=== PATIENT | female | born 1975 | race Caucasian/White ===

== ENCOUNTER → 2018-06-07 10:05 | Outpatient (CLI) | payer OTHER, SELFPAY ==
--- NOTE | 2018-06-07 10:15 | DI.RAD.S_ITS ---
PROCEDURE: XR LUMBAR SPINE MIN 4V INDICATIONS: Eval TECHNIQUE: 5 views of the lumbar spine were acquired. COMPARISON: None. FINDINGS: Bones: 5 nonrib-bearing vertebrae are present. Trace retrolisthesis of L3 on 4, L4 on 5, and trace anterolisthesis of L5 on S1. No vertebral body compression fractures. Normal disc spacing. No suspicious bony lesions. Soft tissues: Overlying bowel gas pattern is normal. IUD in place. Calcified uterine fibroid visible. Surgical clips in the gallbladder fossa.. Oblique images: No pars defects. IMPRESSION: 1. Trace listhesis in the lower lumbar spine. 2. No pars defects evident on radiographs. Dictated by: Kathy Hansen M.D. on 06/07/2018 at 12:18 Approved by: Kathy Hansen M.D. on 06/07/2018 at 12:21
== END ==
PROVIDERS: PCP Nurse Practitioner Family; Visit Provider Physical Medicine & Rehabilitation
DX: M47.817 Spondylosis without myelopathy or radiculopathy, lumbosacral region (principal); G57.01 Lesion of sciatic nerve, right lower limb
CPT/HCPCS: 72110

== ENCOUNTER → 2018-06-21 17:08 | Outpatient (CLI) | payer OTHER, SELFPAY ==
--- NOTE | 2018-06-21 17:13 | DI.MRI.S_ITS ---
PROCEDURE: MR LUMBAR SPINE WO CON INDICATIONS: Eval TECHNIQUE: Noncontrast sagittal T1 spin echo and T2 fast echo, sagittal STIR, axial T1 and T2 fast spin echo through the lumbar spine. In cases with scoliosis, additional coronal T2 fast spin echo may be performed. COMPARISON: None. FINDINGS: Image quality: Excellent. Alignment and Curvature: There is normal bony alignment. Bone Marrow: Marrow is of normal overall signal. No acute vertebral body compression fractures. Spinal Cord: Conus medullaris terminates at the T12-L1 level. Visualized cord demonstrates normal signal and size. Paraspinous Soft Tissues: No paravertebral masses. L1-L2: Normal appearance. L2-L3: Normal appearance. L3-L4: Decreased intervertebral disc space and disc desiccation is seen. Broad-based disc bulge and bilateral facet arthrosis is seen with mild central canal stenosis and mild left-sided neuroforaminal narrowing. L4-L5: There is decreased intervertebral disc space and disc desiccation. Broad-based disc bulge and bilateral facet arthrosis is seen causing mild central canal stenosis and left-sided neuroforaminal narrowing. Bulging disc is seen contacting the left exiting L4 nerve root L5-S1: Disc desiccation signal is seen. Diffuse disc bulge and bilateral facet arthrosis is noted with mild to moderate central canal stenosis and bilateral neuroforaminal narrowing. IMPRESSION: 1. Degenerative distal and bilateral facet arthrosis at L3-4 through L5-S1 levels causing mild to moderate central canal stenosis. Mild bilateral neuroforamina narrowing is seen at L5-S1 level. Mild to moderate left-sided neuroforaminal narrowing is noted at L4-5 level with mild compression of exiting left L4 nerve root. 2. No marrow edema. No compression fracture or spondylolisthesis. Dictated by: Mirza Wallace M.D. on 06/22/2018 at 10:01 Approved by: Mirza Wallace M.D. on 06/22/2018 at 10:04
== END ==
PROVIDERS: PCP Nurse Practitioner Family; Visit Provider Physical Medicine & Rehabilitation
DX: M47.817 Spondylosis without myelopathy or radiculopathy, lumbosacral region (principal); M47.816 Spondylosis without myelopathy or radiculopathy, lumbar region; M48.061 Spinal stenosis, lumbar region without neurogenic claudication; M48.07 Spinal stenosis, lumbosacral region; G57.01 Lesion of sciatic nerve, right lower limb
CPT/HCPCS: 72148

== ENCOUNTER 2018-07-24 10:13 | Outpatient (CLI) | payer OTHER, SELFPAY ==
--- NOTE | 2018-07-24 10:14 | DI.RAD.S_ITS ---
PROCEDURE: PAIN SI JOINT INJECTION INDICATIONS: SACROCOCCYGEAL DISORDER FINDINGS: Fluoroscopic spot filming was performed to verify placement of spinal needles at the right SI joint level(s), as labeled on the films. Appropriate location(s) of the needle tip(s) was confirmed by injection of iodinated contrast. IMPRESSION: Fluoroscopy for pain management. Dictated by: Aubrey Driscoll M.D. on 07/24/2018 at 13:31 Approved by: Aubrey Driscoll M.D. on 07/24/2018 at 13:31
--- NOTE | 2018-07-24 10:14 | DI.RAD.S_ITS ---
PROCEDURE: PAIN L/SI FACET INJ/BLK 1STL INDICATIONS: FACET ARTHROPATHY FINDINGS: Fluoroscopic spot filming was performed to verify placement of spinal needles at the right L5-S1 facet joint as labeled on the films. Appropriate location(s) of the needle tip(s) was confirmed by injection of iodinated contrast. IMPRESSION: Fluoroscopy for pain management. Dictated by: Aubrey Driscoll M.D. on 07/24/2018 at 13:31 Approved by: Aubrey Driscoll M.D. on 07/24/2018 at 13:32
[2018-07-24 10:23] VITALS: BP 135/97; PULSE 75; RESP 16; TEMP 35.8; O2SAT 99
--- NOTE | 2018-07-24 10:46 | P.PCN_ITS ---
Procedures Date/Time Date of procedure: 07/24/18 Time of procedure: 10:45 General Procedure description: PREOP Dx: Sacroiliac joint pain/DJD POST OP DX: Sacroiliac Joint Pain/DJD Procedures: Fluoroscopic guided contrast controlled right sacroiliac joint injection Physician: Edy Liu D.O. Indications: Daphne is referred by Dr. Rangel for treatment of right sacroiliac joint DJD Description of procedure Fluoroscopic guided, contrast controlled right sacroiliac joint injection Following denial of allergies and review of potential side effects and complications, including, but not necessarily limited to, infection, allergic reaction, local tissue breakdown, temporary as well as permanent nerve injury, paralysis, stroke and possible , the patient indicated that they understood and agreed to proceed. An informed consent was signed by the patient, witnessed by a nurse, and placed in the patient's chart. Additionally, other treatment options including modalities, medications, and physical therapy were reviewed with the patient. After review of previous anaesthesic history and IV conscious sedation the patient was deemed safe to proceed with todays procedure with IV conscious sedation as ASA class II designation. Safety time-out was performed to confirm patient ID, procedure to be performed and site of procedure. IV sedation was accomplished with a combination of 3mg Versed and 50mcg of Fentanyl was adm inistered by the RN after DO order, titrated to patient comfort during the course of the procedure while the patient remained responsive to all verbal commands In the prone position following sterile prep and drape of the pelvic region, the hyper lucency on in the inferior aspect of the sacroiliac joint was identified fluoroscopically the skin was anesthetized be a 25 gauge 1 eventual with approx imately 2 cc of 1% lidocaine solution. At this point, a 22 gauge 3 in spinal needle was atraumatically introduced and advanced under fluoroscopic guidance into the inferior aspect of the right sacroiliac joint. Following negative aspiration, approximately 0.3 cc of Isovue-300 was injected confirming intra- articular placement without vascular uptake. Radiographic data, including multiple fluoroscopic views of the pelvis, reveals a spinal needle in the sacroiliac joint hyper lucent zone. Subsequent view show flow contrast tear superiorly and inferiorly within the joint capsule without vascular intrathecal uptake. At this point a total of 1cc or 0.5% Marcaine was combined with 1cc of 6mg of betamethasone was injected without incident. The procedure tolerated the procedure well without signs or symptoms of complications prior to transfer to the recovery area continued monitoring without incident. The patient was then transferred to the recovery area with a bur observed for an appropriate time after the injection. The patient reverted a vas score of 7 prior to the procedure and postprocedure vas of 1. Total fluoroscopy time: 22.7 sec Total conscious sedation time: 24 min Postop instructions The patient was provided with a pain like to continue to record the patient's response to the target specific procedure prior to the patient's follow-up visit with the referring physician. Additionally, specific post injection care instructions and a contact number to our office were provided if concerns arise regarding the possible complications associated with procedure are suspected. Edy Liu D.O.
--- NOTE | 2018-07-24 10:48 | P.PCN_ITS ---
Procedures Date/Time Date of procedure: 07/24/18 Time of procedure: 10:46 General Procedure description: PREOP DIAGNOSIS 1. FACET ARTHROPATHY, 2. AXIAL LBP, 3. MULTILEVEL DDD, POST OP DIAGNOSIS 1. FACET ARTHROPATHY, 2. AXIAL LBP, 3. MULTILEVEL DDD, PROCEDURES 1. FLUORSCOPICALLY GUIDED CONTRAST CONTROLLED FACET JOINT INJECTIONS RIGHT L5/S1 SURGEON: Edy Liu, DO INDICATIONS Daphne is referred by Juan Carlos for treatment of Axial LBP FINDINGS Multilevel Facet Arthropathy with Clinically significant axial LBP DESCRIPTION OF PROCEDURE Fluoroscopically guided, contrast-controlled right L5/S1 facet joint injections. Following denial of allergy and review of potential side effects and complications, including, but not necessarily limited to, infection, allergic reaction, local tissue breakdown, stroke, temporary or permanent nerve injury, paralysis, and possible , the patient indicated that the patient understood and agreed to proceed. An informed consent document was signed by the patient, witnessed by a nurse, and placed in the patient's chart. Additionally, other treatment options including medications, modalities, and physical therapy were reviewed with the patient. After review of previous anaesthesic history and IV conscious sedation the patient was deemed safe to proceed with todays procedure with IV conscious sedation as ASA class II designation. Safety time-out was performed to confirm patient ID, procedure to be performed and site of procedure. IV sedation was accomplished with a combination of 3mg of Versed and 50mcg of Fentanyl was administered by the RN after DO order, titrated to patient comfort during the course of the procedure while the patient remained responsive to all verbal commands. In the prone position, following sterile prep and drape of the lumbar region, the posterior aspect of the right L5/S1 facet joints were identified fluoroscopically. The skin was anesthetized via a 25-gauge 1.5-inch needle with 1% lidocaine solution into the corresponding facet joints. At this point, a 22- gauge 3.5-inch spinal needle was atraumatically introduced and advanced under fluoroscopic guidance into the corresponding facet joints. Following negative aspiration, injections of approximately 0.2-cc of Isovue 200 confirmed interarticular placement without vascular uptake. Radiological data, including multiple fluoroscopic views of the lumbosacral spine, reveal a spinal needle at the right L5/S1 facet joint. Subsequent views show flow of contrast material both superiorly and inferiorly within the joint space without vascular or intrathecal uptake. At this point, a total of 0.5 cc including a mixture of 0.25cc Marcaine and 0.25cc betamethasone was injected without complication into each of the corresponding facet joints. The procedure tolerated the procedure well without signs or symptoms of complications prior to transfer to the recovery area continued monitoring without incident. The patient was then transferred to the recovery area where they were observed for an appropriate period of time after the injection. The patient reported a VAS score of 7 prior to the procedure and a post-procedure VAS of 0. Total Fluoroscopy Time: 12.7 seconds Total Conscious Sedation Time: 24min POST OP INSTRUCTIONS The patient was provided a Pain Log to continue to record their response to the target-specific procedure prior to follow-up visit with their referring physician. Additionally, specific post-injection care instructions and a contact number to our office were provided if concerns arise regarding possible complications associated with the procedure are suspected. Edy Liu DO Complications: none
[2018-07-24 10:54] VITALS: BP 133/71; PULSE 74; RESP 18; O2SAT 100
[2018-07-24] MEDS: MIDAZOLAM 5 MG/5 ML VIAL IV (10:55)
[2018-07-24] MEDS: fentaNYL 100 MCG/2 ML INJ 50 MCG IV (10:55)
[2018-07-24 11:00] VITALS: BP 108/58; PULSE 76; RESP 16; O2SAT 97
[2018-07-24] MEDS: LIDOCAINE 1% 20 ML INJ 5 ML INJ (11:02)
[2018-07-24] MEDS: BUPIVACAINE 0.5% (PF) VIAL 2 ML INJ (11:02)
[2018-07-24] MEDS: IOPAMIDOL 15 ML VIAL 3 ML INJ (11:02)
[2018-07-24] MEDS: BETAMETHASONE 30 MG/5 ML MDV 12 MG INJ (11:02)
[2018-07-24 11:05] VITALS: BP 107/67; PULSE 67; RESP 16; O2SAT 98
[2018-07-24 11:10] VITALS: BP 115/61; PULSE 67; RESP 16; O2SAT 97
--- NOTE | 2018-07-24 11:12 | PC.NURSE ---
pt tolerated procedure well. Able to get off the table with standby assist. Transferred pt awake and alert via wheelchair to pre procedure room for continued monitoring with Jodie PERRY.
[2018-07-24 11:20] VITALS: BP 133/88; PULSE 78; RESP 16; O2SAT 99
--- NOTE | 2018-07-24 11:21 | PC.NURSE ---
ACCEPTED CARE OF PT IN STABLE CONDITION IN POST PROC AREA.
== END 2018-07-24 11:49 | disposition home or self-care (01) ==
LOC: RAD 10:13
PROVIDERS: PCP Nurse Practitioner Family; Visit Provider Physical Medicine & Rehabilitation
DX: M47.817 Spondylosis without myelopathy or radiculopathy, lumbosacral region (principal); M53.3 Sacrococcygeal disorders, not elsewhere classified; M47.898 Other spondylosis, sacral and sacrococcygeal region; M54.5 Low back pain; M51.37 Other intervertebral disc degeneration, lumbosacral region; G57.01 Lesion of sciatic nerve, right lower limb
CPT/HCPCS: 27096; 64493; 99152; J0702; J2250; J3010